=== PATIENT | male | born 1995 | race Caucasian/White ===

== ENCOUNTER 2017-01-24 11:48 | Emergency (ER) | payer MEDICAID ==
[~2017-01-24] VITALS: Ht 167.6 cm; Wt 65.0 kg
[~2017-01-24 11:48] MED LIST: CORT80VI2 SC; HYDR1TAB12 PO; TRAZ50TA18 PO
[2017-01-24] MEDS ORDERED: ONDANSETRON 2MG/ML, 2ML ONE (13:07)
[2017-01-24] MEDS ORDERED: LORazepam 2 MG/ML, 1ML ONE (13:09)
[2017-01-24 13:27] VITALS: BP 107/59
[2017-01-24] MEDS ORDERED: SODIUM CHLORIDE 0.9% 1,000ML IVBOLUS ONE (13:30)
[2017-01-24] MEDS ORDERED: LORazepam 2 MG/ML, 1ML IVPush ONE (13:30)
[2017-01-24] MEDS ORDERED: SODIUM CHLORIDE FLUSH 10ML SYR IVF ONE (13:30)
[2017-01-24] MEDS ORDERED: ONDANSETRON 2MG/ML, 2ML IVPush ONE (13:30)
[2017-01-24 13:51] LABS: ASPARTATE AMINO TRANSFERASE 8 U/L (15-37); BLOOD UREA NITROGEN 10 mg/dL (7-18)
== END 2017-01-24 15:38 | disposition home or self-care (01) ==
LOC: ED 15:32
DX: R11.2 Nausea with vomiting, unspecified (principal); F41.1 Generalized anxiety disorder; J45.909 Unspecified asthma, uncomplicated
CPT/HCPCS: 36415; 80053; 81001; 83690; 85025; 87086; 93005; 96361; 96374; 96375; 99285; J2060; J2405; J7030

== ENCOUNTER 2017-01-26 10:28 | Emergency (ER) | payer MEDICAID ==
[~2017-01-26] VITALS: Ht 167.6 cm; Wt 65.0 kg
[2017-01-26] MEDS ORDERED: LORazepam 1MG TABLET PO ONE (11:30)
[2017-01-26] MEDS ORDERED: LORazepam 1MG TABLET ONE (11:39)
[2017-01-26 12:25] VITALS: BP 110/67
== END 2017-01-26 12:46 | disposition home or self-care (01) ==
LOC: ED 11:29
DX: F41.1 Generalized anxiety disorder (principal); R06.4 Hyperventilation; J45.909 Unspecified asthma, uncomplicated
CPT/HCPCS: 99282

== ENCOUNTER 2017-01-26 21:33 | Inpatient (IN) | payer MEDICAID ==
[~2017-01-26] VITALS: Ht 167.6 cm; Wt 71.3 kg
[2017-01-26] MEDS ORDERED: SODIUM CHLORIDE 0.9% 1,000 ML IV ONE (23:36)
[2017-01-27] MEDS ORDERED: SODIUM CHLORIDE FLUSH 10ML SYR IVF ONE
[2017-01-27 00:03] LABS: ASPARTATE AMINO TRANSFERASE 8 U/L (15-37); BLOOD UREA NITROGEN 6 mg/dL (7-18)
[2017-01-27] MEDS ORDERED: GADOBUTROL 7.5 MMOL/7.5 ML PFS ONE (01:05)
[2017-01-27 03:51] VITALS: BP 116/70
[2017-01-27] MEDS ORDERED: ONDANSETRON ODT 4 MG PO PRN (05:00)
[2017-01-27] MEDS ORDERED: ENOXAPARIN 40 MG/0.4 ML SQ SCH (05:00)
[2017-01-27] MEDS ORDERED: BISACODYL 10 MG SUPP PR PRN (05:00)
[2017-01-27] MEDS ORDERED: TRAZODONE 50MG TABLET PO PRN (05:00)
[2017-01-27] MEDS ORDERED: ACETAMINOPHEN 325 MG TABLET PO PRN (05:00)
[2017-01-27] MEDS ORDERED: LABETALOL 5MG/ML, 20ML IVPush PRN (05:00)
[2017-01-27] MEDS ORDERED: DOCUSATE 100 MG CAPSULE PO PRN (05:00)
[2017-01-27] MEDS ORDERED: POLYETHYLENE GLYCOL 17 GM PACKET PO PRN (05:00)
[2017-01-27] MEDS ORDERED: NS + 20MEQ KCL 1,000 ML IV SCH (05:00)
[2017-01-27] MEDS ORDERED: LORazepam 1MG TABLET ONE ×2 (05:18→13:50)
[2017-01-27] MEDS: LORazepam 0.5MG TABLET PO PRN ×2 (05:43→13:54)
[2017-01-27 07:01] VITALS: BP 111/70
[2017-01-27] MEDS ORDERED: POTASSIUM CHLORIDE 20 MEQ TAB.ER.PRT PO ONE (09:00)
[2017-01-27 14:30] VITALS: BP 116/72
== END 2017-01-27 17:07 | disposition home or self-care (01) | DRG 60 ==
LOC: ED 23:34 → EDIP 01-27 02:35 → 4EST 01-27 03:27
PROVIDERS: ADMIT Internal Medicine; ATTEND Internal Medicine
DX: G35 Multiple sclerosis (principal); F41.1 Generalized anxiety disorder; E87.6 Hypokalemia; J45.20 Mild intermittent asthma, uncomplicated
CPT/HCPCS: 36415; 70553; 80053; 85025; 93005; 96360; 96361; A9585; J1650; J2930; J3480; J7030

== ENCOUNTER 2017-05-20 18:05 | Observation (INO) | payer MEDICAID ==
[~2017-05-20] VITALS: Ht 165.1 cm; Wt 64.4 kg
[2017-05-20] MEDS ORDERED: SODIUM CHLORIDE FLUSH 10ML SYR IVF ONE (18:30)
[2017-05-20] MEDS ORDERED: SODIUM CHLORIDE 0.9% 1,000ML IVBOLUS ONE (18:30)
[2017-05-20] MEDS ORDERED: ONDANSETRON 2MG/ML, 2ML IVPush ONE (18:30)
[2017-05-20] MEDS ORDERED: MORPHINE SULFATE 4 MG/ML, 1ML IVPush PRN ×2 (18:30→21:00)
[2017-05-20] MEDS ORDERED: NATA300V2 IV (18:35)
[2017-05-20] MEDS ORDERED: ONDANSETRON 2MG/ML, 2ML ONE ×2 (18:45→21:17)
[2017-05-20] MEDS ORDERED: MORPHINE SULFATE 4 MG/ML, 1ML ONE (18:45)
[2017-05-20 18:52] LABS: HEMATOCRIT 50.7 % (39.2-51.8); HEMOGLOBIN 17.2 g/dL (13.7-18.0); WHITE BLOOD COUNT 16.8 x10^3/uL (4.5-13.2)
[2017-05-20 19:09] LABS: BLOOD UREA NITROGEN 7 mg/dL (7-18)
[2017-05-20 19:13] LABS: ASPARTATE AMINO TRANSFERASE 12 U/L (15-37)
[2017-05-20] MEDS ORDERED: OMNIPAQUE 350 MG/ML, 100ML BOTTLE ONE (20:18)
[2017-05-20] MEDS ORDERED: SODIUM CHLORIDE 0.9% 1,000 ML IV ONE (20:44)
[2017-05-20] MEDS ORDERED: CEFTRIAXONE PMX 1GM/50ML 50 ML ONE (20:50)
[2017-05-20] MEDS ORDERED: BUPIVACAINE/PF 0.5% ONE (20:53)
[2017-05-20] MEDS ORDERED: EPINEPHRINE 1 MG/ML, 1ML ONE (20:54)
[2017-05-20] MEDS ORDERED: SODIUM CHLORIDE FLUSH 10ML SYR IVF PRN (21:00)
[2017-05-20] MEDS ORDERED: ONDANSETRON 2MG/ML, 2ML IVPush PRN ×2 (21:00→21:30)
[2017-05-20] MEDS ORDERED: CEFTRIAXONE PMX 1GM/50ML 50 ML IV ONE (21:00)
[2017-05-20] MEDS ORDERED: METRONIDAZOLE PMX 500MG/100ML 100 ML IV ONE (21:00)
[2017-05-20] MEDS ORDERED: FENTANYL PF 100 MCG/2ML ONE ×3 (21:17→23:01)
[2017-05-20] MEDS ORDERED: MIDAZOLAM 1 MG/ML, 2ML ONE (21:17)
[2017-05-20] MEDS ORDERED: SUCCINYLCHOLINE 20 MG/ML, 10ML ONE (21:17)
[2017-05-20] MEDS ORDERED: GLYCOPYRROLATE 0.2MG/1ML, 5ML ONE (21:17)
[2017-05-20] MEDS ORDERED: NEOSTIGMINE 1 MG/ML, 10ML ONE (21:17)
[2017-05-20] MEDS ORDERED: PROPOFOL 10 MG/ML, 20ML ONE ×2 (21:17)
[2017-05-20] MEDS ORDERED: ROCURONIUM 10 MG/ML ONE (21:17)
[2017-05-20] MEDS ORDERED: DEXAMETHASONE 4 MG/ML, 1ML ONE (21:17)
[2017-05-20] MEDS ORDERED: METOPROLOL 1 MG/ML, 5ML IV PRN (21:30)
[2017-05-20] MEDS ORDERED: PROMETHAZINE 25 MG/ML, 1ML IV PRN (21:30)
[2017-05-20] MEDS ORDERED: ACETAMINOPHEN 325 MG TABLET PO PRN (21:30)
[2017-05-20] MEDS ORDERED: EPHEDRINE 50 MG/ML, 1ML IVPush PRN (21:30)
[2017-05-20] MEDS ORDERED: HYDROmorphone 1 MG/ML, 1ML IV PRN (21:30)
[2017-05-20] MEDS ORDERED: LABETALOL 5MG/ML, 20ML IV PRN (21:30)
[2017-05-20] MEDS ORDERED: hydrALAzine 20 MG/ML, 1ML IV PRN (21:30)
[2017-05-20] MEDS ORDERED: ALBUTEROL SULFATE 2.5 MG/3 ML NPPB PRN (21:30)
[2017-05-20] MEDS ORDERED: MEPERIDINE/PF 25MG/0.5ML IVPush PRN (21:30)
[2017-05-20] MEDS ORDERED: FENTANYL PF 100 MCG/2ML IV PRN (21:30)
[2017-05-20] MEDS ORDERED: OXYcodone 5 MG/5 ML ORAL.SOL UDC PO PRN (21:30)
[2017-05-20] MEDS ORDERED: BUPIVACAINE/PF-EPI 0.5% 1:200K IM ONE (22:26)
[2017-05-20] MEDS ORDERED: ACETAMINOPHEN 650 MG/20.3 ML UDC ONE (23:01)
[2017-05-20] MEDS ORDERED: OXYcodone 5 MG/5 ML ORAL.SOL UDC ONE (23:02)
[2017-05-20] MEDS ORDERED: MEPERIDINE/PF 25MG/0.5ML ONE (23:02)
[2017-05-21] VITALS: BP 109/63
[2017-05-21 00:30] VITALS: BP 109/70
[2017-05-21] MEDS ORDERED: ONDANSETRON 2MG/ML, 2ML IV PRN (00:30)
[2017-05-21] MEDS ORDERED: ACETAMINOPHEN 325 MG TABLET PO PRN (00:30)
[2017-05-21] MEDS ORDERED: MORPHINE SULFATE 4 MG/ML, 1ML IV PRN (00:30)
[2017-05-21] MEDS ORDERED: OXYcodone/APAP 5/325MG TABLET PO PRN (00:30)
[2017-05-21] MEDS ORDERED: DIPHENHYDRAMINE 50 MG/ML, 1ML IVPush PRN (00:30)
[2017-05-21] MEDS ORDERED: FLU VACC QS2017-18 (36MOS+) UP/PF 0.5 ML IM-VACC ONE (01:30)
[2017-05-21 03:08] VITALS: BP 98/60
[2017-05-21] MEDS: LACTATED RINGERS 1,000 ML IV SCH ×2 (03:28→10:30)
[2017-05-21 08:00] VITALS: BP 100/58
[2017-05-21] MEDS ORDERED: OXYC-302 PO (12:32)
[2017-05-21] MEDS ORDERED: POLY119P4 PO (12:40)
== END 2017-05-21 12:50 | disposition home or self-care (01) ==
LOC: ED 18:44 → EDIP 20:44 → INTOOBSV 20:44 → 4NOR 05-21 00:02 → DCLOUNGE 05-21 12:35
PROVIDERS: ADMIT Colon & Rectal Surgery; ATTEND Colon & Rectal Surgery
DX: K35.3 Acute appendicitis with localized peritonitis (principal); G35 Multiple sclerosis; Z23 Encounter for immunization
CPT/HCPCS: 36415; 44970; 74177; 80053; 81003; 85025; 88304; 90686; 99285; G0378; J0171; J0330; J0696; J1100; J2175; J2250; J2405; J2704; J2710; J3010; J3490; J7030; J7120; Q9967

== ENCOUNTER 2017-07-14 07:39 | Emergency (ER) | payer MEDICAID ==
[~2017-07-14] VITALS: Ht 167.6 cm; Wt 61.0 kg
[~2017-07-14 07:39] MED LIST changes: +NATA300V2 IV; +OXYC-302 PO; +POLY119P4 PO
[2017-07-14 08:25] LABS: HEMATOCRIT 51.2 % (39.2-51.8); HEMOGLOBIN 17.6 g/dL (13.7-18.0); WHITE BLOOD COUNT 9.1 x10^3/uL (4.5-13.2)
[2017-07-14] MEDS ORDERED: SODIUM CHLORIDE 0.9% 1,000ML IVBOLUS ONE (08:30)
[2017-07-14 08:38] LABS: ASPARTATE AMINO TRANSFERASE 16 U/L (15-37); BLOOD UREA NITROGEN 9 mg/dL (7-18)
[2017-07-14] MEDS ORDERED: CEFTRIAXONE PMX 1GM/50ML 50 ML IVPB ONE (10:00)
[2017-07-14 10:44] VITALS: BP 144/84
== END 2017-07-14 10:50 | disposition home or self-care (01) ==
LOC: ED 08:22
DX: N30.00 Acute cystitis without hematuria (principal); J45.909 Unspecified asthma, uncomplicated
CPT/HCPCS: 36415; 80053; 81001; 85025; 87086; 93005; 96361; 96374; 99285; J0696; J7030

== ENCOUNTER 2017-07-16 14:10 | Emergency (ER) | payer MEDICAID ==
[~2017-07-16] VITALS: Ht 167.6 cm; Wt 63.5 kg
[2017-07-16 14:12] VITALS: BP 96/58
[2017-07-16] MEDS ORDERED: SODIUM CHLORIDE 0.9% 1,000ML IVBOLUS ONE (14:30)
[2017-07-16] MEDS ORDERED: SODIUM CHLORIDE FLUSH 10ML SYR IVF ONE (14:30)
[2017-07-16 14:51] LABS: HEMATOCRIT 50.3 % (39.2-51.8); HEMOGLOBIN 17.2 g/dL (13.7-18.0); WHITE BLOOD COUNT 8.1 x10^3/uL (4.5-13.2)
[2017-07-16 15:03] LABS: BLOOD UREA NITROGEN 6 mg/dL (7-18)
[2017-07-16 15:06] LABS: ASPARTATE AMINO TRANSFERASE 8 U/L (15-37)
[2017-07-17] MEDS ORDERED: CEFD300C37 PO (02:04)
[2017-07-17] MEDS ORDERED: TRAZ100T15 PO (02:04)
== END 2017-07-16 18:46 | disposition home or self-care (01) ==
LOC: ED 18:10
DX: G35 Multiple sclerosis (principal); F41.1 Generalized anxiety disorder; J45.909 Unspecified asthma, uncomplicated
CPT/HCPCS: 36415; 80053; 81003; 85025; 93005; 99285

== ENCOUNTER 2017-07-17 01:43 | Emergency (ER) | payer MEDICAID ==
[~2017-07-17] VITALS: Ht 167.6 cm; Wt 64.6 kg
[2017-07-17] MEDS ORDERED: CEFD300C37 PO (02:04)
[2017-07-17] MEDS ORDERED: TRAZ100T15 PO (02:04)
[2017-07-17 03:21] LABS: HEMATOCRIT 48.6 % (39.2-51.8); HEMOGLOBIN 16.3 g/dL (13.7-18.0); WHITE BLOOD COUNT 10.2 x10^3/uL (4.5-13.2)
[2017-07-17 03:28] LABS: BLOOD UREA NITROGEN 7 mg/dL (7-18)
[2017-07-17 03:31] LABS: ACETAMINOPHEN < 2 mcg/mL (10-30)
[2017-07-17 03:33] LABS: ASPARTATE AMINO TRANSFERASE 11 U/L (15-37)
[2017-07-17 03:39] LABS: DAU SCREEN DISCLAIMER
[2017-07-17 03:45] LABS: PATH.CAST-FLAG NOT PRESENT; SPERM-FLAG NOT PRESENT; SRC-FLAG NOT PRESENT; XTAL-FLAG NOT PRESENT; YLC-FLAG NOT PRESENT
[2017-07-17 04:15] VITALS: BP 110/72
== END 2017-07-17 05:21 | disposition home or self-care (01) ==
LOC: ED 02:13
DX: T43.211A Poisoning by selective serotonin and norepinephrine reuptake inhibitors, accidental (unintentional), initial encounter (principal); R11.2 Nausea with vomiting, unspecified; Y92.89 Other specified places as the place of occurrence of the external cause; G35 Multiple sclerosis
CPT/HCPCS: 36415; 80053; 80307; 80329; 81001; 85025; 93005; 99285; G0479; G0480

== ENCOUNTER 2017-07-22 07:03 | Emergency (ER) | payer MEDICAID ==
[~2017-07-22] VITALS: Ht 167.6 cm; Wt 65.0 kg
[~2017-07-22 07:03] MED LIST changes: +CEFD300C37 PO; +TRAZ100T15 PO
[2017-07-22] MEDS ORDERED: SODIUM CHLORIDE 0.9% 1,000 ML IV ONE (07:55)
[2017-07-22] MEDS ORDERED: LORazepam 2 MG/ML, 1ML ONE (07:59)
[2017-07-22] MEDS ORDERED: LORazepam 2 MG/ML, 1ML IVPush ONE (08:00)
[2017-07-22] MEDS ORDERED: SODIUM CHLORIDE 0.9% 1,000ML IVBOLUS ONE ×2 (08:00→09:30)
[2017-07-22] MEDS ORDERED: SODIUM CHLORIDE FLUSH 10ML SYR IVF ONE (08:00)
[2017-07-22 08:30] LABS: HEMATOCRIT 49.5 % (39.2-51.8); HEMOGLOBIN 16.8 g/dL (13.7-18.0); WHITE BLOOD COUNT 15.4 x10^3/uL (4.5-13.2)
[2017-07-22 08:41] LABS: BLOOD UREA NITROGEN 8 mg/dL (7-18)
[2017-07-22 08:45] LABS: ASPARTATE AMINO TRANSFERASE 14 U/L (15-37); DIFF TOTAL CELLS COUNTED 100 CELL DIFF
[2017-07-22 08:46] LABS: ACETAMINOPHEN < 2 mcg/mL (10-30); VERIFY COUNTS? YES
[2017-07-22] MEDS ORDERED: POTASSIUM CHLORIDE 20 MEQ TAB.ER.PRT ONE (09:31)
[2017-07-22] MEDS ORDERED: POTASSIUM CHLORIDE 20 MEQ TAB.ER.PRT PO ONE (10:00)
[2017-07-22 11:33] LABS: DAU SCREEN DISCLAIMER
[2017-07-22 12:10] VITALS: BP 120/78
== END 2017-07-22 13:08 | disposition home or self-care (01) ==
LOC: ED 07:56
DX: S01.512A Laceration without foreign body of oral cavity, initial encounter (principal); S00.33XA Contusion of nose, initial encounter; E87.6 Hypokalemia; R55 Syncope and collapse; D72.829 Elevated white blood cell count, unspecified; J45.909 Unspecified asthma, uncomplicated; X58.XXXA Exposure to other specified factors, initial encounter; Y93.89 Activity, other specified; Y92.89 Other specified places as the place of occurrence of the external cause; Y99.8 Other external cause status
CPT/HCPCS: 36415; 70450; 80053; 80307; 80329; 81001; 85025; 87086; 93005; 96361; 96374; 99285; J2060; J7030; G0479; G0480

== ENCOUNTER 2017-07-24 09:36 | Emergency (ER) | payer MEDICAID ==
[~2017-07-24] VITALS: Ht 167.6 cm; Wt 63.6 kg
[2017-07-24 12:11] LABS: HEMATOCRIT 46.3 % (39.2-51.8); HEMOGLOBIN 15.6 g/dL (13.7-18.0); WHITE BLOOD COUNT 7.6 x10^3/uL (4.5-13.2)
[2017-07-24 12:17] LABS: BLOOD UREA NITROGEN 4 mg/dL (7-18)
[2017-07-24 12:33] LABS: DAU SCREEN DISCLAIMER
[2017-07-24] MEDS ORDERED: SODIUM CHLORIDE FLUSH 10ML SYR IVF ONE (13:00)
[2017-07-24 15:35] VITALS: BP 114/73
== END 2017-07-24 17:28 | disposition home or self-care (01) ==
LOC: ED 12:43
DX: G35 Multiple sclerosis (principal); F33.1 Major depressive disorder, recurrent, moderate; F41.1 Generalized anxiety disorder; J45.909 Unspecified asthma, uncomplicated
CPT/HCPCS: 36415; 80048; 80307; 81003; 82040; 83735; 85025; 99284; G0479

== ENCOUNTER → 2017-10-07 | Outpatient (CLI) | payer MEDICAID ==
[~2017-10-07] MED LIST changes: +GADOBUTROL 7.5 MMOL/7.5 ML PFS ONE
== END ==
LOC: CFH 12:11
PROVIDERS: ATTEND Registered Nurse
DX: G35 Multiple sclerosis (principal); R90.82 White matter disease, unspecified; G95.89 Other specified diseases of spinal cord
CPT/HCPCS: 70553; 72156; 72157; A9585

== ENCOUNTER → 2017-11-27 | Outpatient (CLI) | payer MEDICAID ==
[~2017-11-27] MED LIST changes: +BUPR150T6 PO; +CHOL500045 PO
== END ==
LOC: RAD 15:45
PROVIDERS: ATTEND Registered Nurse
DX: C79.31 Secondary malignant neoplasm of brain (principal); C80.1 Malignant (primary) neoplasm, unspecified; R90.82 White matter disease, unspecified
CPT/HCPCS: 70553; A9585

== ENCOUNTER 2018-03-01 15:20 | Observation (INO) | payer MEDICAID ==
[~2018-03-01] VITALS: Ht 167.6 cm; Wt 63.0 kg
[~2018-03-01 15:20] MED LIST changes: +ACET-1600 PO; +ACYC-113 PO; +CETI10TA18 PO; +DIPH25CA61 PO; -GADOBUTROL 7.5 MMOL/7.5 ML PFS ONE; +RANI150T4 PO; +SULF1TAB23 PO
[2018-03-01 15:50] LABS: BASOPHILS # (AUTO) 0.03 x10^3/uL (0-0.3); BASOPHILS % (AUTO) 1 % (0-1); EOSINOPHILS # (AUTO) 0.05 x10^3/uL (0-0.8); EOSINOPHILS % (AUTO) 1 % (1-7); LYMPHOCYTES # (AUTO) 1.38 x10^3/uL (1-6.1); LYMPHOCYTES % (AUTO) 24 % (22-44); MD NO; MEAN CORPUSCULAR HEMOGLOBIN 29.8 pg (27.5-34.5); MEAN CORPUSCULAR HGB CONC 33.7 g/dL (33.2-36.2); MEAN CORPUSCULAR VOLUME 88.3 fL (81-97); MEAN PLATELET VOLUME 9.1 fL (7.4-10.4); MONOCYTES # (AUTO) 0.38 x10^3/uL (0-1.4); MONOCYTES % (AUTO) 7 % (2-9); NEUTROPHILS # (AUTO) 4.01 x10^3/uL (1.8-8.0); NEUTROPHILS % (AUTO) 69 % (42-75); PLATELET COUNT 253 x10^3/uL (130-400); RED CELL DISTRIBUTION WIDTH 15.3 % (9.4-14.8)
[2018-03-01 15:58] LABS: ALANINE AMINOTRANSFERASE 24 U/L (12-78); ALBUMIN 4.6 g/dL (3.4-5.0); ANION GAP 9 mmol/L (5-15); CALCIUM 8.4 mg/dL (8.5-10.1); CHLORIDE 108 mmol/L (98-107); CREATININE 1.05 mg/dL (0.7-1.3)
[2018-03-01 16:00] LABS: ALKALINE PHOSPHATASE 52 U/L (45-117); BILIRUBIN,TOTAL 2.3 mg/dL (0.2-1.0); TOTAL PROTEIN 7.4 g/dL (6.4-8.2)
[2018-03-01 16:01] LABS: SALICYLATE LEVEL < 1.7 mg/dL (2.8-20.0)
[2018-03-01 16:03] LABS: ACETAMINOPHEN < 2 mcg/mL (10-30)
[2018-03-01] MEDS ORDERED: SODIUM CHLORIDE 0.9% 1,000ML IVBOLUS ONE (16:30)
[2018-03-01 18:16] LABS: AMPHETAMINE SCREEN, URINE Negative (Negative); BARBITURATE SCREEN, URINE Negative (Negative); BENZODIAZEPINE SCREEN, URINE Negative (Negative); CANNABINOID SCREEN, URINE Negative (Negative); COCAINE SCREEN, URINE Negative (Negative); METHADONE SCREEN, URINE Negative (Negative); OPIATE SCREEN, URINE Negative (Negative)
[2018-03-01] MEDS ORDERED: ONDANSETRON ODT 4 MG PO PRN (19:00)
[2018-03-01] MEDS ORDERED: ACETAMINOPHEN 325 MG TABLET PO PRN (19:00)
[2018-03-01] MEDS ORDERED: POLYETHYLENE GLYCOL 17 GM PACKET PO PRN (19:00)
[2018-03-01] MEDS ORDERED: BISACODYL 10 MG SUPP PR PRN (19:00)
[2018-03-01] MEDS ORDERED: POTASSIUM CHLORIDE 20 MEQ TAB.ER.PRT ONE (19:18)
[2018-03-01] MEDS: POTASSIUM CHLORIDE 20 MEQ TAB.ER.PRT PO SCH ×2 (19:19→21:00)
[2018-03-02 04:32] LABS: ALANINE AMINOTRANSFERASE 20 U/L (12-78); ALBUMIN 4.2 g/dL (3.4-5.0); ANION GAP 7 mmol/L (5-15); CALCIUM 8.7 mg/dL (8.5-10.1); CHLORIDE 108 mmol/L (98-107); CREATININE 0.92 mg/dL (0.7-1.3)
[2018-03-02 04:34] LABS: ALKALINE PHOSPHATASE 51 U/L (45-117); BILIRUBIN,TOTAL 2.7 mg/dL (0.2-1.0); TOTAL PROTEIN 6.5 g/dL (6.4-8.2)
[2018-03-02] MEDS: POTASSIUM CHLORIDE 20 MEQ TAB.ER.PRT PO SCH ×3 (09:00→20:46)
[2018-03-02] MEDS ORDERED: SENNA/DOCUSATE TABLET PO SCH (09:00)
[2018-03-02] MEDS ORDERED: SERTRALINE 50MG TABLET ONE (14:50)
[2018-03-02] MEDS ORDERED: POTASSIUM CHLORIDE 20 MEQ TAB.ER.PRT ONE (14:58)
[2018-03-02] MEDS ORDERED: SERTRALINE 50MG TABLET PO ONE ×2 (15:00→15:30)
[2018-03-02 15:59] VITALS: BP 118/78
[2018-03-02 19:36] VITALS: BP 107/66
[2018-03-02] MEDS ORDERED: POTASSIUM CHLORIDE 10 MEQ TABLET.ER ONE (20:44)
[2018-03-03] MEDS ORDERED: SERTRALINE 50MG TABLET PO SCH (09:00)
== END 2018-03-02 22:45 ==
LOC: ED 18:29 → EDIP 18:52 → 2N 03-02 15:17
PROVIDERS: ADMIT Internal Medicine; ATTEND Internal Medicine
DX: T14.91XA Suicide attempt, initial encounter (principal); T45.0X2A Poisoning by antiallergic and antiemetic drugs, intentional self-harm, initial encounter; F33.1 Major depressive disorder, recurrent, moderate; R00.0 Tachycardia, unspecified; E87.6 Hypokalemia; G35 Multiple sclerosis; J45.909 Unspecified asthma, uncomplicated; Z84.1 Family history of disorders of kidney and ureter; Z87.891 Personal history of nicotine dependence; Y92.89 Other specified places as the place of occurrence of the external cause; Y99.8 Other external cause status; Y93.89 Activity, other specified
CPT/HCPCS: 36415; 80053; 80307; 80329; 83735; 85025; 93005; 96360; 99285; G0378; J7030; G0480

== ENCOUNTER 2018-07-01 11:51 | Inpatient (IN) | payer MEDICAID ==
[~2018-07-01] VITALS: Ht 167.6 cm; Wt 66.3 kg
[~2018-07-01 11:51] MED LIST changes: +TRAZ-136 PO; +TRAZ-137 PO; -TRAZ100T15 PO; -TRAZ50TA18 PO
[2018-07-01] MEDS ORDERED: SODIUM CHLORIDE FLUSH 10ML SYR IVF ONE (13:00)
[2018-07-01 13:11] LABS: BASOPHILS # (AUTO) 0.02 x10^3/uL (0-0.1); BASOPHILS % (AUTO) 0 % (0-1); EOSINOPHILS % (AUTO) 4 % (1-7); LYMPHOCYTES # (AUTO) 0.97 x10^3/uL (1-3.4); LYMPHOCYTES % (AUTO) 18 % (22-44); MD NO; MEAN CORPUSCULAR HEMOGLOBIN 30.3 pg (27.5-34.5); MEAN CORPUSCULAR HGB CONC 34.2 g/dL (33.2-36.2); MEAN CORPUSCULAR VOLUME 88.7 fL (81-97); MEAN PLATELET VOLUME 8.8 fL (7.4-10.4); MONOCYTES # (AUTO) 0.32 x10^3/uL (0.2-0.8); MONOCYTES % (AUTO) 6 % (2-9); NEUTROPHILS # (AUTO) 3.81 x10^3/uL (1.8-6.8); NEUTROPHILS % (AUTO) 72 % (42-75); PLATELET COUNT 261 x10^3/uL (130-400); RED BLOOD COUNT 5.58 x10^6/uL (4.38-5.82); RED CELL DISTRIBUTION WIDTH 13.8 % (9.4-14.8)
[2018-07-01 13:15] LABS: CHLORIDE 108 mmol/L (98-107)
[2018-07-01 13:22] LABS: ALBUMIN 3.8 g/dL (3.4-5.0); ANION GAP 8 mmol/L (5-15); CALCIUM 8.5 mg/dL (8.5-10.1)
[2018-07-01 13:23] LABS: CREATININE 0.82 mg/dL (0.7-1.3)
[2018-07-01] MEDS ORDERED: SODIUM CHLORIDE FLUSH 10ML SYR IVF PRN (14:00)
[2018-07-01] MEDS ORDERED: ONDANSETRON 2MG/ML, 2ML IVPush PRN (16:00)
[2018-07-01] MEDS: INSULIN LISPRO 100 UNITS/ML, PEN SQ-INSULIN SCH ×2 (16:25→20:55)
[2018-07-01 20:00] VITALS: BP 113/68
[2018-07-02 01:18] VITALS: BP 108/67
[2018-07-02 08:07] VITALS: BP 110/69
[2018-07-02] MEDS: INSULIN LISPRO 100 UNITS/ML, PEN SQ-INSULIN SCH ×4 (08:15→19:37)
[2018-07-02] MEDS ORDERED: GADOBUTROL 7.5 MMOL/7.5 ML PFS ONE (10:40)
[2018-07-02 13:09] VITALS: BP 100/65
[2018-07-02 19:42] VITALS: BP 108/69
[2018-07-03 02:00] VITALS: BP 104/56
[2018-07-03] MEDS: INSULIN LISPRO 100 UNITS/ML, PEN SQ-INSULIN SCH ×4 (07:00→19:58)
[2018-07-03 07:23] VITALS: BP 105/61
[2018-07-03 13:37] VITALS: BP 106/71
[2018-07-03 18:43] VITALS: BP 113/68
[2018-07-04 00:19] VITALS: BP 118/70
[2018-07-04] MEDS: INSULIN LISPRO 100 UNITS/ML, PEN SQ-INSULIN SCH ×4 (07:00→20:55)
[2018-07-04 07:58] VITALS: BP 104/61
[2018-07-04 13:15] VITALS: BP 111/67
[2018-07-04 19:16] VITALS: BP 95/69
[2018-07-05 01:54] VITALS: BP 106/59
[2018-07-05] MEDS: INSULIN LISPRO 100 UNITS/ML, PEN SQ-INSULIN SCH ×2 (07:00→11:00)
[2018-07-05 07:37] VITALS: BP 115/68
== END 2018-07-05 12:30 | disposition home or self-care (01) | DRG 60 ==
LOC: ED 12:03 → EDIP 13:44 → 3NE 14:59 → DCLOUNGE 07-05 12:23
PROVIDERS: ADMIT Hospitalist; ATTEND Internal Medicine
PROC: 3E0333Z Introduction of Anti-inflammatory into Peripheral Vein, Percutaneous Approach (ICD-10-PCS; principal; 2018-07-01)
DX: G35 Multiple sclerosis (principal); J45.909 Unspecified asthma, uncomplicated; R73.9 Hyperglycemia, unspecified; F32.9 Major depressive disorder, single episode, unspecified; T38.0X5A Adverse effect of glucocorticoids and synthetic analogues, initial encounter; Z87.891 Personal history of nicotine dependence; Z90.49 Acquired absence of other specified parts of digestive tract; Z91.5 Personal history of self-harm; Y92.89 Other specified places as the place of occurrence of the external cause
CPT/HCPCS: 36415; 70553; 80048; 82040; 82962; 84443; 85025; 96365; A9585; G0378; J2930; J1815

== ENCOUNTER 2019-11-10 00:35 | Emergency (ER) | payer OTHER ==
[~2019-11-10] VITALS: Ht 167.6 cm; Wt 62.0 kg
[~2019-11-10 00:35] MED LIST changes: -HYDR1TAB12 PO; +HYDR1TAB13 PO; -TRAZ-136 PO; -TRAZ-137 PO; +TRAZ-175 PO; +TRAZ50TA66 PO
[2019-11-10 00:42] VITALS: BP 118/75
== END 2019-11-10 02:34 | disposition home or self-care (01) ==
LOC: ED 01:13
DX: R07.2 Precordial pain (principal); J45.909 Unspecified asthma, uncomplicated; Z87.891 Personal history of nicotine dependence
CPT/HCPCS: 71045; 93005; 99283

== ENCOUNTER 2020-03-24 00:36 | Emergency (ER) | payer MEDICAID, OTHER ==
[~2020-03-24] VITALS: Ht 167.6 cm; Wt 70.0 kg
[2020-03-24 00:42] VITALS: BP 109/70
[2020-03-24] MEDS ORDERED: [UNRECOGNIZED DRUG - OTHER] (01:05)
[2020-03-24] MEDS ORDERED: ALBUTEROL SULFATE 2.5 MG/3 ML ONE (01:15)
[2020-03-24] MEDS ORDERED: ALBUTEROL/IPRATROPIUM 2.5MG/0.5MG, 3 ML ONE (01:17)
--- NOTE | 2020-03-24 01:24 | NUR ---
MEDICATED PER ORDER, NEB TREATMENT STARTED, RADIOLOGY TO BEDSIDE AND LAB TO ROOM. MOST PLEASANT YOUNG MAN, 95%RA, 100% ON NEB
[2020-03-24] MEDS ORDERED: ALBUTEROL SULFATE 2.5MG/0.5ML NPPB ONE (01:30)
[2020-03-24] MEDS ORDERED: ALBUTEROL/IPRATROPIUM 2.5MG/0.5MG, 3 ML NPPB ONE (01:30)
[2020-03-24 01:37] LABS: BASOPHILS # (AUTO) 0.02 x10^3/uL (0-0.1); BASOPHILS % (AUTO) 0 % (0-1); EOSINOPHILS % (AUTO) 3 % (1-7); LYMPHOCYTES # (AUTO) 1.65 x10^3/uL (1-3.4); LYMPHOCYTES % (AUTO) 23 % (22-44); MD NO; MEAN CORPUSCULAR HEMOGLOBIN 29.6 pg (27.5-34.5); MEAN CORPUSCULAR HGB CONC 33.5 g/dL (33.2-36.2); MEAN CORPUSCULAR VOLUME 88.4 fL (81-97); MEAN PLATELET VOLUME 9.2 fL (7.4-10.4); MONOCYTES # (AUTO) 0.51 x10^3/uL (0.2-0.8); MONOCYTES % (AUTO) 7 % (2-9); NEUTROPHILS # (AUTO) 4.94 x10^3/uL (1.8-6.8); NEUTROPHILS % (AUTO) 68 % (42-75); PLATELET COUNT 237 x10^3/uL (130-400); RED BLOOD COUNT 5.84 x10^6/uL (4.38-5.82)
[2020-03-24 01:47] LABS: ANION GAP 7 mmol/L (5-15); CALCIUM 8.5 mg/dL (8.5-10.1); CHLORIDE 113 mmol/L (98-107)
--- NOTE | 2020-03-24 02:12 | NUR ---
pt reports that he is feeling better at htis time, MD back to room and pt aware of plan of care and discharge, Discussion regarding reasons to return and follow-up, all questions answered. very pleasant young man
== END 2020-03-24 02:31 | disposition home or self-care (01) ==
LOC: ED 01:57
DX: J45.901 Unspecified asthma with (acute) exacerbation (principal); R07.89 Other chest pain
CPT/HCPCS: 36415; 71045; 80048; 82040; 85025; 93005; 94640; 99285; J7512

== ENCOUNTER 2020-09-25 11:07 | Outpatient (CLI) | payer MEDICAID, OTHER ==
[~2020-09-25 11:07] MED LIST changes: +ALPR1TAB2 PO; -BUPR150T6 PO; +BUPR150T7 PO; -OXYC-302 PO; +OXYC1TAB14 PO; +[UNRECOGNIZED DRUG - OTHER]
[2020-09-25] MEDS ORDERED: ALPRazolam 1MG TAB ONE (11:36)
[2020-09-25] MEDS ORDERED: GADOTERATE 7.5 MMOL/15 ML VIAL ONE (12:14)
== END 2020-09-25 23:59 | disposition home or self-care (01) ==
LOC: RAD 11:07
PROVIDERS: ATTEND Registered Nurse
DX: G35 Multiple sclerosis (principal)
CPT/HCPCS: 72157; A9575